=== PATIENT | male | born 1985 | race Caucasian/White ===

== ENCOUNTER 2019-01-25 06:06 | Inpatient (IN) ==
[2019-01-25] MEDS ORDERED: REGLAN ONE (06:51)
[2019-01-25] MEDS ORDERED: KEFZOL 1 GM/D5W 2 GM/100 ML IVPB ONE (06:51)
[2019-01-25] MEDS ORDERED: LR 1,000 ML ONE ×3 (06:51→11:01)
[2019-01-25] MEDS ORDERED: PEPCID ONE (06:51)
[2019-01-25] MEDS ORDERED: VERSED ONE (07:52)
[2019-01-25] MEDS ORDERED: FENTANYL ONE (07:52)
[2019-01-25] MEDS ORDERED: DIPRIVAN 1% ONE (07:53)
[2019-01-25] MEDS ORDERED: SODIUM CHLORIDE 0.9% ONE (08:37)
[2019-01-25] MEDS ORDERED: MARCAINE 0.25% PF/EPI 1:200,000 ONE (08:37)
[2019-01-25] MEDS ORDERED: DECADRON ONE (08:39)
[2019-01-25] MEDS ORDERED: XYLOCAINE-MPF 2% ONE (08:39)
[2019-01-25] MEDS ORDERED: QUELICIN (DOSE) ONE (08:39)
[2019-01-25] MEDS ORDERED: ROBINUL ONE (08:39)
[2019-01-25] MEDS ORDERED: ZOFRAN ONE (08:39)
[2019-01-25] MEDS ORDERED: NEOSTIGMINE ONE (08:40)
[2019-01-25] MEDS ORDERED: GLUCAGON ONE (09:54)
[2019-01-25] MEDS ORDERED: BRIDION ONE (10:35)
[2019-01-25] MEDS: DILAUDID ONE ×2 (10:48→10:55)
--- NOTE | 2019-01-25 10:48 | Diag Imaging Result Doc PS360 ---
EXAM: OPERATIVE CHOLANGIOGRAM INDICATION: GALLBLADDER DX TECHNIQUE: COMPARISON: None. FINDINGS: Four spot fluoroscopic images of the opacified common bile duct were provided, which were performed intraoperatively during cholecystectomy by Dr. Iam Arzate. There is an apparent filling defect seen in the distal common bile duct with suggestion of a small meniscus. This probably represents a stone in the distal common bile duct. No contrast could be seen entering the small bowel. There is little if any dilation of the common bile duct, however. IMPRESSION: As above. Please correlate with live fluoroscopic imaging. Electronically signed by Aman Hargrove 01/25/2019 10:45 AM
[2019-01-25] MEDS ORDERED: VENTOLIN HFA INH PRN (12:14)
[2019-01-25 13:38] LABS: HEMATOCRIT 41.4 % (42.0-52.0); HEMOGLOBIN 13.8 g/dL (14.0-18.0); MCH 28.3 PG (27-31); MCHC 33.3 g/dL (33-37); MPV 11.2 FL (7.4-10.4); RBC 4.87 XMIL (4.7-6.1); RDW 15.4 % (11.5-14.5); WBC 11.38 X1000 (4.8-10.8)
--- NOTE | 2019-01-25 13:38 | Diag Imaging Result Doc PS360 ---
MRI MRCP (ABD W/O CONTRAST) - 01/25/2019 INDICATION: Choledocolithiasis TECHNIQUE: COMPARISON: Cholangiogram from 01/25/2019 FINDINGS: The intra and extrahepatic biliary ducts are normal. There is no filling defect or dilation. The main pancreatic duct is normal. There is been cholecystectomy. No mass or fluid collection. The liver, pancreas, spleen, adrenals, and kidneys are normal. IMPRESSION: No acute disease or complication. Electronically signed by Jaswant Monique 01/25/2019 1:35 PM
[2019-01-25 14:02] LABS: AGAP 12; ALB/GLOB RATIO 1.4; ALKALINE PHOSPHATASE 74 U/L (32-122); BUN 16 mg/dL (8-22); CALCIUM 8.7 mg/dL (8.8-10.2); CHLORIDE 101 mmol/L (98-107); COSMO 277; CREATININE 0.8 mg/dL (0.7-1.2); ESTIMATED GFR > 60; GLUCOSE 101 mg/dL (70-104); GOT 60 U/L (10-34); GPT 53 U/L (10-44); LIPASE 30 U/L (13-60); SODIUM 138 mmol/L (136-145); TCO2 25 mmol/L (25-35); TOTAL BILIRUBIN 0.22 mg/dL (0.20-1.00); TOTAL PROTEIN 6.9 g/dL (6.3-8.3)
[2019-01-25] MEDS: MORPHINE IV PRN ×2 (16:18→22:55)
--- NOTE | 2019-01-25 20:07 | OPERATIVE NOTE ---
PROCEDURE DATE: 01/25/2019 PREOPERATIVE DIAGNOSIS: Symptomatic cholelithiasis. POSTOPERATIVE DIAGNOSES: 1. Symptomatic cholelithiasis.. 2. Possible choledocholithiasis. 3. Iatrogenic serosal injury to small bowel. PROCEDURES PERFORMED: 1. Laparoscopic cholecystectomy with cholangiogram. 2. Repair of serosal injury to the small bowel. SURGEON: Nils Arzate MD. ESTIMATED BLOOD LOSS: 20 mL. SPECIMENS: Gallbladder. ANESTHESIA: General. INDICATIONS: This is a 33-year-old gentleman who has had colicky right upper quadrant abdominal pain. Gallstones noted on ultrasound operative. OPERATIVE FINDINGS: 1. Chronically inflamed gallbladder. Numerous stones within the infundibulum. Long narrow cystic duct was noted. Interpretation: Intraoperative cholangiogram showed rapid flow of contrast through a long narrow cystic duct into a prominent but not significantly dilated common bile duct. There was a distal filling defect that failed to resolve with glucagon administration. No passage of contrast to the small bowel. Intrahepatic radicals were normal appearing. 2. There was injury to the small bowel upon incising the peritoneum. There was partial thickness involving all the serosa in just a few mm. This was primarily repaired. The bowel was well perfused otherwise. There was no contamination. OPERATIVE NOTE: Risks, benefits, alternatives discussed with the patient. He consented to the procedure. After surgical site was confirmed, he was taken to the operating room, placed in the supine position, and general anesthesia, induced without complication. All bony prominences were padded. His abdomen was prepped with chlorhexidine after hair was removed with clippers and draped in usual fashion. After time-out, we made a supraumbilical midline incision. The patient's BMI is 40.1. He had a lot of subcutaneous adipose tissue. We carried this down, incised the fascia and felt we had elevated the peritoneum safely. We incised with Metzenbaum scissors but realized that there was serosa of the bowel noted underlying the peritoneum. We then insufflated and inspected and confirmed with there was a small injury to the bowel here, and as such we extended our incision, placed an Isaiah wound protector, eviscerated the small bowel and imbricated it transversely with interrupted 0 Vicryl sutures. This was not full-thickness. At this point, we placed a GelPort and insufflated the abdomen through this and continued with our laparoscopic cholecystectomy. Three additional 5 mm trocars were placed. He was placed in reverse Trendelenburg, left side down. The gallbladder was grasped and retracted cephalad. We scored the peritoneum overlying the infundibulum and dissected out the Calot's triangle widely. There was a small cystic artery that coursed through this. After confirming our critical view, we placed a clip on the gallbladder side, made a ductotomy, and performed cholangiogram with above findings. We felt as though there was possible retained stone distally. Despite flushing and administration of glucagon. We could get this to clear. As such we completed our cholangiogram. We obtained our exposure, triply clipped the cystic duct, doubly clipped the artery and divided both of these. We began to remove the gallbladder from the gallbladder fossa. There were 2 other small arterial branches and venous branches entering into the gallbladder that we doubly clipped. The gallbladder was removed intact. No spillage of stones. It was placed in EndoCatch bag. At this point, we looked back and inspected our small bowel repair. It was well perfused. There was no leakage. There was no evidence of obstruction. The abdomen was copiously irrigated. Placed a Alec drain in the gallbladder fossa given the possible distal obstruction and secured it with nylon suture. There was no concern for bile leakage. We deflated the abdomen and closed the midline fascia with interrupted #1 PDS after the gallbladder was removed. The skin was closed with 4-0 Monocryl at each location. Dermabond was applied. Counts were correct. He was awoken and transferred to recovery. I discussed with the patient and his family we would monitor him tonight with LFTs, MRCP and observation given the small bowel repair. I did discuss this iatrogenic injury with the patient's . cc: Nils Arzate MD
[2019-01-25] MEDS: LR 1,000 ML IV SCH (22:03)
[2019-01-25] MEDS: NICODERM PATCH TD SCH (22:03)
[2019-01-25] MEDS: ZOFRAN IV PRN (22:55)
[2019-01-25] MEDS: PERIDEX MT SCH (22:55)
[2019-01-26] MEDS: LR 1,000 ML IV SCH (04:10)
[2019-01-26] MEDS: ZOFRAN IV PRN (04:36)
[2019-01-26] MEDS: MORPHINE IV PRN (04:37)
[2019-01-26 06:32] LABS: HEMATOCRIT 42.9 % (42.0-52.0); HEMOGLOBIN 14.2 g/dL (14.0-18.0); MCH 27.7 PG (27-31); MCHC 33.1 g/dL (33-37); MCV 83.6 FL (81-99); MPV 11.2 FL (7.4-10.4); RBC 5.13 XMIL (4.7-6.1); RDW 15.5 % (11.5-14.5); WBC 8.22 X1000 (4.8-10.8)
[2019-01-26 06:48] LABS: AGAP 12; ALB/GLOB RATIO 1.4; ALBUMIN 4.2 g/dL (3.5-5.0); ALKALINE PHOSPHATASE 75 U/L (32-122); BUN 10 mg/dL (8-22); CHLORIDE 102 mmol/L (98-107); COSMO 279; CREATININE 0.9 mg/dL (0.7-1.2); ESTIMATED GFR > 60; GLUCOSE 105 mg/dL (70-104); GOT 41 U/L (10-34); GPT 45 U/L (10-44); LIPASE 26 U/L (13-60); POTASSIUM 3.8 mmol/L (3.5-5.1); SODIUM 140 mmol/L (136-145); TCO2 26 mmol/L (25-35); TOTAL BILIRUBIN 0.33 mg/dL (0.20-1.00); TOTAL PROTEIN 7.2 g/dL (6.3-8.3)
[2019-01-26] MEDS ORDERED: PROTONIX PO SCH (07:00)
[2019-01-26] MEDS ORDERED: SINGULAIR PO SCH (09:00)
[2019-01-26] MEDS: PERIDEX MT SCH (09:23)
[2019-01-26] MEDS: NICODERM PATCH TD SCH (09:23)
[2019-01-26 12:15] VITALS: BP 120/85
--- NOTE | 2019-01-27 03:10 | GASTROENTEROLOGY CONSULTATION ---
DATE: 01/26/2019 REASON FOR CONSULTATION: Concern for choledocholithiasis. HISTORY OF PRESENT ILLNESS: Mr. Bryant Osborn is a 33-year-old gentleman who was admitted for symptomatic cholelithiasis, who underwent laparoscopic cholecystectomy on 01/25/2019 and intraoperative cholangiogram was done, which showed question distal common bile duct stone. The surgery was complicated by small-bowel incision, small-bowel injury, that was primarily repaired. A JOSE ELIAS drain was placed during the surgery. Overnight, the patient had an MRCP that was normal without evidence of intra- or extrahepatic biliary dilation, filling defect in the gallbladder, mass or fluid collection. The patient reports some abdominal soreness. No nausea, vomiting, fevers, chest pain, trouble breathing, jaundice, rectal bleeding. REVIEW OF SYSTEMS: As per HPI, otherwise 12-point review of systems is negative. PAST MEDICAL HISTORY: Includes morbid obesity, GERD. PAST SURGICAL HISTORY: Cholecystectomy at 01/25/2019, lung surgery for left pneumothorax in the past. MEDICATIONS: Symbicort, ProAir, Singulair, Zegerid. ALLERGIES: No known drug allergies. SOCIAL HISTORY: Half pack per day smoker. No alcohol or drug use. FAMILY HISTORY: No family history of GI malignancies. PHYSICAL EXAMINATION: Vital Signs: Temperature 97.3 degrees, heart rate 72, respiratory rate 18, blood pressure 120/85, O2 saturation 100% on room air. General: Patient is awake, alert, oriented, no acute distress. HEENT: Sclerae anicteric. Moist mucous membranes. Extraocular motor intact. Neck: Supple. No JVD or lymphadenopathy. Cardiac: Regular rate and rhythm. No murmurs. Lungs: Clear to auscultation bilaterally. Abdomen: Obese. Bowel sounds are present. Abdominal incision clean, dry, intact. Right upper quadrant Ramos-Garcia drain with serosanguineous fluid in the bulb. Extremities: No clubbing, cyanosis, edema. Neurologic: Nonfocal. LABS: White count 8.2, hemoglobin 14.2, platelets 209,000. Sodium 140, potassium 3.8, chloride 102, bicarb 26, BUN is 10, creatinine 0.9. Glucose of 105, total bilirubin 0.33, AST 41, ALT 45, alkaline phosphatase 75, albumin 4.2, total protein 7.2, lipase 26. IMAGING: Intraoperative cholangiogram showed apparent filling defects seen in the distal common bile duct which suggest a small meniscus, this probably represents a stone in the distal common bile duct. No contrast could be seen entering the small bowel. There was little, if any, dilation of the common bile duct, however. Follow-up MRCP showed the intra- and extrahepatic biliary ducts are normal. There is no filling defect or dilation. The main pancreatic duct is normal, status post cholecystectomy. No mass or fluid collection in the liver, pancreas, spleen, adrenals, and kidneys are normal. No acute disease or complication. ASSESSMENT AND PLAN: Mr. Bryant Osborn is a 33-year-old gentleman with a history of morbid obesity, gastroesophageal reflux disease, symptomatic cholelithiasis, who presented for elective cholecystectomy, complicated by small-bowel injury and question choledocholithiasis on intraoperative cholangiogram. Follow up MRCP was negative for any common bile duct stones. His LFTs are stable with mildly elevated AST, ALT, probably likely from underlying fatty liver given known morbid obesity. The patient appears nontoxic. He is feeling well. He has some mild abdominal soreness that is post surgical in nature. His LFTs are relatively unchanged. The patient is okay to be discharged from a GI perspective with surgery follow-up. Please call with any questions or concerns. # Choledocholithiasis # Abnormal LFTs # Fatty liver # Morbid obesity # Cholelithiasis We will sign off. Thank you for this consult. cc: Nils Arzate MD [facility]
== END 2019-01-26 14:18 | disposition home or self-care (01) | DRG 418 ==
LOC: 4N 06:06 → OR 06:06
PROVIDERS: ADMIT Surgery; ATTEND Surgery